=== PATIENT | male | born 1975 | race Caucasian/White ===

== ENCOUNTER 2017-01-06 20:09 | Emergency (ER) | payer BC ==
[~2017-01-06] VITALS: Ht 172.7 cm; Wt 104.2 kg
[~2017-01-06 20:09] MED LIST: LEVO88TA3 PO; ZIAC 5-6.25 MG PO
[2017-01-06 20:25] VITALS: TEMP 37.2; Ht 172.7 cm; Wt 104.2 kg
[2017-01-06] MEDS ORDERED: PRLSR20 PO (20:41)
[2017-01-06] MEDS ORDERED: SYN125 PO (20:41)
[2017-01-06] MEDS ORDERED: ALBU18002 INH (20:43)
[2017-01-06] MEDS ORDERED: XYLOCAINE 1%/SOD BICARB 20 ML VIAL INFIL ONE (20:45)
[2017-01-06] MEDS ORDERED: CEPHALEXIN 500MG HOME PACK 1 EA BTL PO ONE (21:15)
[2017-01-06] MEDS ORDERED: CEPH500C PO ×2 (21:15→21:25)
[2017-01-06 21:27] VITALS: BP 128/78; PULSE 59; O2SAT 95
--- NOTE | 2017-01-07 00:31 | EMERGENCY ROOM VISIT NOTE ---
History First contact with patient: 20:27 Chief Complaint: LACERATION/CUT (NON-SUTURE) Stated Complaint: GASH TO LOWER RIGHT LEG Nursing Triage Summary: Laceration to bilateral lower legs. History of Present Illness The patient is a 41 year old male who presents to the Emergency Room with complaints of laceration to his right leg and left leg that occurred about one hour ago. The patient was attempting to move a lawn tractor from an embankment. The patient slipped, and struck his anterior legs on the deck of the tractor. The tractor was not on and he was not struck by the spinning blades. He states that he is up-to-date on his tetanus. He was able to ambulate after the injury. He rates his discomfort a 5/10. Review of Systems More than 10 systems were reviewed and otherwise negative with the exception of history of present illness. Past Medical/Surgical History Medical Problems: (1) Hypertension Family History FH: heart disease Hypertension Social History Smoking Status: Never Smoker Alcohol Use: occasionally Marital Status: Housing Status: lives with family, lives with significant other Occupation Status: employed Current/Historical Medications Scheduled Albuterol Sulfate (Proair Respiclick), 2 PUFFS INH QID Cephalexin Monohydrate (Keflex), 500 MG PO TID Levothyroxine Sodium (Synthroid), 1 TAB PO DAILY Omeprazole (Prilosec), 20 MG PO DAILY [Ziac 5-6.25 Mg], 1 TAB PO DAILY Physical Exam Vital Signs Date Time Temp Pulse Resp B/P (MAP) Pulse Ox O2 Delivery O2 Flow Rate FiO2 01/06/17 21:27 59 18 128/78 95 01/06/17 20:25 37.2 62 16 148/86 96 Room Air Pain Rating (0-10): 0 Physical Exam VITALS: Vitals are noted on the nurse's note and reviewed by myself. Vital signs stable. GENERAL: Well-developed, well-nourished, white male, who is in no acute distress and resting comfortably. Patient is cooperative with the examination. HEART: Regular rate and rhythm without murmurs gallops or rubs. LUNGS: Clear to auscultation bilaterally without wheezes, rales or rhonchi. No retractions or accessory muscle use. SKIN: The skin was with 2 lacerations. The first is 5.0 cm along the anterior right lower leg. This does gape and will require repair. The second is 2.0 cm along the left anterior lower leg. This also gapes and will require repair. Medical Decision & Procedures Medications Administered Medications (Trade) Dose Ordered Sig/Che Route Start Time Stop Time Status Last Admin Dose Admin Cephalexin Monohydrate (Keflex 500MG Home Pack) 1 homepack NOW ONCE PO 01/06/17 21:15 01/06/17 21:16 DC 01/06/17 21:18 1 HOMEPACK Procedure Laceration repair. Patient elects to have their laceration repaired. Verbal consent was obtained to perform the procedure. There is an abundance of materials available for the procedure. Patient is not allergic to latex. Using sterile technique the wounds were cleaned with Betadine. The areas were sterilely draped. 7 ml of 1% buffered lidocaine was used to anesthetize the right leg laceration and 4 mL's of 1% buffered lidocaine was used to anesthetize the left leg laceration. Once the patient was anesthetized, the wounds were copiously irrigated under pressure with sterile saline. The wounds were explored and there were no deep structures injured such as tendons, bone, or significant blood vessels of the left leg. On examination of the right leg there does appear to be exposure to the underlying anterior tibia. The left leg laceration was repaired using 4 lakeshia with the wound edges being well approximated. The right leg laceration was repaired using 8 lakeshia with the wound edges being well approximated. Hemostasis was achieved. The areas were cleaned with sterile saline and dressed with bacitracin ointment and bandage. Patient tolerated the procedure well without complications. Blood loss was negligible. ED Course Physical exam and history were performed. Nursing notes, EMR, and Medication List were personally reviewed. Patient appears to have suffered laceration to his bilateral legs as described above. The wounds were repaired and the patient tolerated the procedure well. He appears to have exposure to the bone of the right lower leg, and will be started on Keflex. Wound care structures were discussed and the patient was invited back to the ER with any new, worsening, or concerning symptoms. The chart was completed utilizing [employer] Voice Recognition Software. Grammatical errors, random word insertions, pronoun errors, and incomplete sentences are an occasional consequence of this system due to software limitations, ambient noise, and hardware issues. Any formal questions or concerns about the content, text, or information contained within the body of this dictation should be directly addressed to the provider for clarification. . Medical Decision Differential diagnosis includes, but is not limited to: Laceration, abrasion, foreign body or bony injury, and others Impression Primary Impression: Laceration of leg Departure Information Dispostion Home / Self-Care Condition GOOD Prescriptions Cephalexin Monohydrate (Keflex) 500 Mg Cap 500 MG PO TID for 7 Days, #21 CAP Prov: Jaime Faria PA-C 01/06/17 Forms HOME CARE DOCUMENTATION FORM, IMPORTANT VISIT INFORMATION Patient Instructions My [facility], ED Laceration All, ED Scar Tips to Minimize Additional Instructions Keep wound clean and dry. Do not allow any crusting or dried blood to accumulate on lakeshia. If this occurs, use a mild soap/water on a Q-tip to clean the wound. Do not use Peroxide to clean the wound as this can delay healing Use an antibiotic ointment like Bacitracin for 3-4 days, then let wound dry. You may bathe and shower as normal, but DO NOT SOAK the wound. Staple removal in about 12-14 days with your Family Doctor or in the ER. Return sooner for any signs of infection, increasing redness, swelling, or drainage. Cephalexin(Keflex) 500mg: Take one pill 3 times daily for 7 days to prevent skin infection. All antibiotics can cause diarrhea. If this occurs and you feel worse or it does not resolve in 1-2 days follow up with your doctor or return to the Emergency Department as this could be signs of serious underlying problems. Any medication can cause an allergic reaction, stop the pills immediately and return to the ER for rash, hives, breathing difficulties, or swelling.
== END 2017-01-06 21:29 | disposition home or self-care (01) ==
LOC: C.EDB 20:10 → C.EDD 21:29
DX: S81.812A Laceration without foreign body, left lower leg, initial encounter (principal); S81.811A Laceration without foreign body, right lower leg, initial encounter; W22.8XXA Striking against or struck by other objects, initial encounter

== ENCOUNTER → 2017-06-13 | Outpatient (CLI) | payer OTHER ==
[~2017-06-13] MED LIST changes: +ALBU18002 INH; -LEVO88TA3 PO; +PRLSR20 PO; +SYN125 PO
--- NOTE | 2017-06-14 05:43 | PAP/PSG TECHNICIAN REPORT ---
[facility] Finished Carpet Inspector Polysomnogram Report Study name: None Report date: 06/14/2017 Study date: 06/13/2017 Referring Physician: Kalyn Cassidy Name: ROBERT FLORES Interpreting Physician: Tae Snow M.D. Date of : 1975 Finished Carpet Inspector: JESSICA Burton. Sex: Male Age: 42 StudyType: PSG PAP Weight: 233 lbs Height: 42 years, Height 5' 8" Neck Circum:17.5inches BMI: 35.42 Medications: Doxycycline 100mg, Mucinex, Requip 0.5mg, Zoloft 100mg, Levoxyl 125mcg, Ziac 5-6.25mg, Carafate 1GM, Flonase 50mcg/act, Vit D, Dionna 180mg, Multivitamin Patient History Study started on room air with 9cwp cpap (per order) in room #8. 42 yr old male here tonight for a titration study. He is currently on cpap at a setting of 9.5cwp. He brought his own Dream[employer]ear nasal pillow system to use. He has been having problems with restless legs. His ESS=4/24. Neck circ=17.5inches Parameters Monitored NPSG: E1-M2, E2-M1, Fp1-M2, Fp2-M1, F3-M2, F4-M2, F4-M1, C3-M2, C4-M2, C4-M1, O1-M2, O2-M2, O2-M1, T3-M2, T4-M1, P3-M2, P4-M1, CHIN1, CHIN2, HR, EKG, Legs, PFLOW, SNOR, FLOW, CFLOW, Tidal Volume, THOR, ABDO, SpO2, PLTH, CPRESS, ETCO2 Wave, ETCO2, pH Sleep Architecture Sleep Stages Time at Lights Off 10:16:15 PM STAGES Time (min.) TST (%) Time at Lights On 5:30:15 AM Wake 27.5 -- Total Recording Time (TRT) 434.00 min. N1 7.5 2 Total Sleep Period (TSP) 423.0 min. N2 191.0 47 Total Sleep Time (TST) 406.5min. N3 86.5 21 Awake Time 27.5 min. REM 121.5 30 Wake after Sleep Onset 17.0 min. Sleep Efficiency (SE) 94 % Sleep Onset Latency (KERI) 10.5 min. Number of Stage 1 Shifts None Awakenings 12 Stage Changes 59 Number of REM periods 8 REM 121.5 30 REM Latency 50.0 min. NREM 285.0 70 Body Position Analysis Supine Right Left Side Prone Vertical Total Sleep Time (min.) 434.0 0.0 0.0 0.00 0.0 0.0 Total Sleep Time (%) 100% 0% 0% 0 0% N/A% Total Sleep Time REM (min.) 121.5 0.0 0.0 None 0.0 0.0 Total Sleep Time NREM (min.) 285.0 0.0 0.0 None 0.0 0.0 Intermittent Wake (min.) 27.5 0.0 0.0 None 0.0 0.0 Total Sleep Period (%) 100% None None None None None Arousals Myoclonus (PLM) * Events Count Index Events Count Index Spontaneous 6 1 Events Awake (PLMW) 35 76.4 Respiratory 6 1.0 Events Asleep w/ Arousal (PLMA) 8 1.2 PLM 8 1 Events Asleep w/o Arousal (PLMS) 329 48.6 Snoring 5 1 Total Asleep 337 49.7 Total 25 4 Total 372 51 Respiratory Analysis * CA OA MA CH H RERA Total Count 0 3 0 0 23 1 26 Index 0.0 0.4 0.0 0 3.4 0 4.0 Mean Duration 0.0 14.6 0.0 0.00 16.7 16.4 16.5 Longest Duration 0.0 16.9 0.0 0.00 0.0 16.4 25.0 Respiratory Event Summary Total Supine ~Supine Right Left Prone REM NREM Apneas Count 3 3 N/A N/A N/A N/A 0 3 Index 0.4 0 N/A N/A N/A N/A 0 1 Hypopneas (4% Desat) Count 23 23 N/A N/A N/A N/A 3 20 Index 3.4 3.4 N/A N/A N/A N/A 1.5 4.2 Apneas & All Hypopneas Count 26 26 N/A N/A N/A N/A 3 23 Index 3.8 4 N/A N/A N/A N/A 1.5 4.8 Respiratory Events (Hoseman+All Hyp+RERA) Count 26 27 N/A N/A N/A N/A 3 23 Index 4.0 4 N/A N/A N/A N/A 1.5 5.1 Respiratory Related Arousal Count 6 27 N/A N/A N/A N/A 1 6 Index 1.0 1 N/A N/A N/A N/A 0 1 Snoring Analysis Supine Right Left Prone REM NREM Total Snore duration 2.1 min Snores count 88 N/A N/A N/A 3 85 88 Snore mean duration 1.5 Sec Snores index 13 N/A N/A N/A 1.5 17.9 13.0 TST with snoring (%) 0.5% Desaturation Event Summary: Minimum %SpO2 Event Count Mean/Min/Max Duration(sec.) Desaturation Index % Time In Bed > 90 32 17.2 / 9.0 / 38.8 4.4 99.9 86 - 90 0 N/A 0.0 0.1 81 - 85 0 N/A 0.0 0.0 76 - 80 0 N/A 0.0 0.0 71 - 75 0 N/A 0.0 0.0 66 - 70 0 N/A 0.0 0.0 61 - 65 0 N/A 0.0 0.0 56 - 60 0 N/A 0.0 0.0 51 - 55 0 N/A 0.0 0.0 < 50 0 N/A 0.0 0.0 Total REM NREM Awake <50% 0.0 min. 0.0 min. 0.0 min. 0.0 min. 51 - 60% 0.0 min. 0.0 min. 0.0 min. 0.0 min. 61 - 70% 0.0 min. 0.0 min. 0.0 min. 0.0 min. 71 - 80% 0.0 min. 0.0 min. 0.0 min. 0.0 min. 81 - 90% 0.4 min. 0.1 min. 0.3 min. 0.1 min. 91 - 100% 433.2 min. 121.4 min. 284.6 min. 27.1 min. Average 95 95 94 95 Minimum SpO2 86 90 90 86 Desaturation Event Index 4.4 1.0 5.1 13.1 # Desat. Events below 89% N/A N/A N/A N/A Time(%) with Saturation below 89% 0.0 0.0 0.0 0.0 Time(min.) with Saturation below 89% 0.0 0.0 0.0 0.0 Time (mins) REM (mins) NREM (mins) % of TST SpO2 Below 90% 3 1 N2 0.0 SpO2 Below 88% 0 0 0 0 Heart Rate Analysis Min (bpm) Max (bpm) Average (bpm) Awake 48 127 55 NREM 45 77 52 REM 46 66 53 Overall 45 77 52 Supplemental O2 Values Minimum O2 level: None Value Start Time End Time Finished Carpet Inspector Comments Mr. Flores slept in the supine position. No cardiac arrhythmia noted. PLM's were noted. No bruxism noted. CPAP was initiated at +9 CMH2O (per order) and up-titrated to an optimal level of +12 CMH2O, which nearly eliminated all respiratory events and snoring. His own DreanWear nasal pillow system by [employer] was used during titration He did not use the restroom during the night. He stated that he slept about the same as usual. The final report will be interpreted and signed by a sleep physician. The completed physician report will then be placed in the patient medical record. Therapy Event: Therapy (cm H20) 9 10 11 12 Total Time at Pressure (min.) 79.1 93.1 49.2 212.5 TST at Pressure (min.) 61.6 92.1 48.7 204.0 # Periods 1 1 1 1 Sleep Onset (min.) 10.5 0.0 0.0 0.0 REM Onset (min.) 60.5 50.9 8.8 45.0 Sleep Efficiency % 77 98 99 96 Wakefulness (%) 22.1 1.1 1.0 4.0 Wakefulness (min.) 17.5 1.0 0.5 8.5 NREM 1 (%) 2.5 1.6 1.0 1.6 NREM 1 (min.) 2.0 1.5 0.5 3.5 NREM 2 (%) 36.8 28.6 77.7 45.7 NREM 2 (min.) 29.1 26.6 38.2 97.0 NREM 3 (%) 25.3 29.0 16.2 14.8 NREM 3 (min.) 20.0 27.0 8.0 31.5 REM (%) 13.3 39.7 4.1 33.9 REM (min.) 10.5 37.0 2.0 72.0 # Arousals 8 3 2 12 Arousal Index 7.8 2.0 2.5 3.5 # Snore 36 22 5 25 Snore Index 35.1 14.3 6.2 7.4 AHI 4.9 5.2 6.2 2.4 AHI Supine 4.9 5.2 6.2 2.4 AHI Non-Supine N/A N/A N/A N/A NREM AHI 3.5 7.6 6.4 3.6 REM AHI 11.4 1.6 0.0 0.0 RDI 5.8 5.2 6.2 2.4 # Obstructive 0 2 0 1 # Central Ap 0 0 0 0 # Mixed 0 0 0 0 # Hypopneas 5 6 5 7 RERAS 1 0 0 0 Total Respiratory Events 6 8 5 8 Time Below SpO2 89.00% (min.) 0.0 0.0 0.0 0.0 Mean NREM SpO2 (%) 94 94 94 95 Mean REM SpO2 (%) 93 94 95 96 Mean Sleep SpO2 (%) 94 94 94 95 Min NREM SpO2 (%) 90 91 91 91 Min REM SpO2 (%) 90 92 93 93 Position Supine (min.) 61.6 92.1 48.7 204.0 Position Non-supine (min.) 0.0 0.0 0.0 0.0 LM Index Sleep 82.8 76.8 76.3 21.2 LM Index NREM 94.0 111.0 75.7 25.0 LM Index REM 28.6 25.9 90.0 14.2 Mean Heart Rate (bpm) 50 51 52 53 Min Heart Rate (bpm) 45 46 46 47
--- NOTE | 2017-06-16 10:37 | POLYSOMNOGRAPH REPORT ---
CLINICAL DATA: A 42-year-old male with BMI of 35.4 referred by Luna Cassidy for a CPAP titration study. He currently is on CPAP 9.5 cm of water pressure. He used his own [employer] nasal pillow system. He has been having problems with restless legs. His Friendship sleepiness score was 4/24. SLEEP ARCHITECTURE: Total sleep period was 423 minutes. Total sleep time was 406.5 minutes divided between 285 minutes of non-REM sleep, 121.5 minutes of REM sleep. Sleep onset latency was 10.5 minutes. REM latency was 15 minutes. Sleep efficiency was 94%. Wake after sleep onset was 17 minutes. Sleep consisted of stage N1 2%, stage N2 47%, stage N3 21%, and REM 30%. AROUSAL DATA: 25 arousals were recorded for an index of 4 per hour. PLM DATA: Severe PLMD was noted. There were 337 limb movements during sleep noted for with an index of 49.7 per hour with arousal index of 1.2 per hour. RESPIRATORY DATA: The AHI was 3.8. There were 3 obstructive apneic episodes. The longest apneic episode was 16.9 seconds. There were 23 hypopneic episodes with a mean duration of 16.7 seconds. OXIMETRY DATA: No hypoxemia was seen. Oxygen tami was 90%. Mean saturation was 95%. EKG: Heart rates ranged from 45-77 beats per minute. No arrhythmias were noted. FRONT COUNTER ATTENDANT'S COMMENTS AND TREATMENT SUMMARY: The patient slept supine. He used his own nasal pillow system. He was titrated up to 12 cm of water pressure. At his final pressure setting, he slept for 204 minutes with an AHI of 2.4. IMPRESSION: Obstructive sleep apnea corrected with CPAP at 12 cm of water pressure with a residual AHI of 2.4. The patient had persistent leg movements at night, although they were significantly reduced once he reached 12 cm water pressure CPAP. RECOMMENDATIONS: His CPAP should be adjusted at 12 cm water pressure. If he continues to have issues, workup and treatment of PLMD may be needed. Clinical correlation is needed. HEATH
== END | disposition home or self-care (01) ==
LOC: C.NEUR 21:00
PROVIDERS: ATTEND Nurse Practitioner Family
DX: G47.33 Obstructive sleep apnea (adult) (pediatric) (principal); G25.81 Restless legs syndrome; R25.8 Other abnormal involuntary movements; G47.10 Hypersomnia, unspecified; G47.9 Sleep disorder, unspecified